=== PATIENT | male | born 1960 | race Two or more races ===

== ENCOUNTER 2019-02-13 03:00 | Emergency (ER) | payer BC ==
--- NOTE | 2019-02-13 03:35 | PDOC ---
Attending Attestation - Resident Resident Name: Clayton Damian - ED Attending Attestation I have performed the following: I have examined & evaluated the patient, The case was reviewed & discussed with the resident, I agree w/resident's findings & plan - HPI HPI: 02/13/19 03:37 Pt comes with epuigastric pain; he has HTN in the ER. He states that he has a hx of GB stones and that this is the stone pain. No fevers and no chills. - Physicial Exam PE: 02/13/19 03:38 Agree with resident exam 02/13/19 04:32 Normal heart and lungs and flank and kwon[rapubic area. Normal epigastric exam and normal RUQ and LUQ exam. Pt has no rebound and no guarding. Pt afebrile and he has no chest pain. Pt has no SOB. His BP is elevated and he seems slightly anxious. - Medical Decision Making 02/13/19 04:29 Pt has normal labs and feels better with morphine. 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 Ate fatty food yesterday and drank a bit. Never had a hx of pancreatitis. No HTN, DM, High cholesterol. Pt's PMD is Dr. Aldana; he has been to see the general surgeon in the past for his GB, but decided against cholectystectomy, as he felt fine for months on end. 02/13/19 04:34 all labs including UA are normal CXR normal EKG NSR Pt will have a sonogram of his GB in the morning. 02/13/19 04:53 Pt will be signed ot to the AM team All labs are normal and UA normal
[2019-02-13] MEDS ORDERED: morphine CARPU-JECT 2 MG/1 ML DISP.SYRIN IVPUSH ONE (03:37)
[2019-02-13] MEDS ORDERED: MORPHINE SULFATE 2 MG/ML VIAL IVPUSH ONE (03:37)
--- NOTE | 2019-02-13 03:44 | PDOC ---
History of Present Illness - General Chief Complaint: Pain Stated Complaint: UPPER ABDOMINAL PAIN Time Seen by Provider: 02/13/19 03:25 History Source: Patient Exam Limitations: No Limitations - History of Present Illness Initial Comments: 02/13/19 03:44 58 yo male pmh of gall stones presents to the ED for sudden onset RUQ pain. Pt states the pain woke him up at 1 am, located RUQ with radiation to the back, described as sharp. Pt had a large thanksgiving meal around 6 pm last night. States he has been told he needs to have his gall bladder removed electively. Denies F/C/N/V, CP, SOB, changes in bowel or bladder habits. Past History - Past Medical History Allergies/Adverse Reactions: Allergies Allergy/AdvReac Type Severity Reaction Status Date / Time No Known Allergies Allergy Verified 02/13/19 03:38 Home Medications: Ambulatory Orders NK [No Known Home Medication] 02/13/19 - Psycho Social/Smoking Cessation Hx Smoking History: Never smoked Hx Alcohol Use: No Drug/Substance Use Hx: No Review of Systems - Review of Systems Constitutional: No: Chills, Fever Respiratory: No: Shortness of Breath Cardiac (ROS): No: Chest Pain ABD/GI: Yes: Other (RUQ abdominal pain). No: Constipated, Diarrhea, Nausea, Vomiting : No: Burning, Dysuria, Frequency, Flank Pain Musculoskeletal: No: Back Pain Integumentary: No: Change in Color Neurological: No: Headache, Numbness, Paresthesia, Weakness *Physical Exam - Vital Signs Last Vital Signs Temp Pulse Resp BP Pulse Ox 98.3 F 73 18 188/95 H 100 02/13/19 03:15 02/13/19 03:15 02/13/19 03:15 02/13/19 03:15 02/13/19 03:15 - Physical Exam General Appearance: Yes: Nourished, Appropriately Dressed. No: Apparent Distress HEENT: positive: EOMI Neck: positive: Supple. negative: Carotid bruit Respiratory/Chest: positive: Lungs Clear, Normal Breath Sounds. negative: Respiratory Distress, Accessory Muscle Use, Crackles, Rales, Rhonchi, Stridor, Wheezing Cardiovascular: positive: Regular Rhythm, Regular Rate, S1, S2. negative: Edema , JVD, Murmur Vascular Pulses: Dorsalis-Pedis (R): 4+, Doralis-Pedis (L): 4+ Gastrointestinal/Abdominal: positive: Flat, Soft, Tenderness, Other (+ murphys) . negative: Pulsatile Mass, Distended, Guarding, Rebound Musculoskeletal: negative: CVA Tenderness Extremity: positive: Normal Capillary Refill, Normal Inspection, Normal Range of Motion Integumentary: positive: Normal Color, Dry, Warm Neurologic: positive: Fully Oriented, Alert, Normal Mood/Affect ED Treatment Course - LABORATORY CBC & Chemistry Diagram: 02/13/19 03:45 02/13/19 03:45 Medical Decision Making - Medical Decision Making 02/13/19 06:11 58 yo male pmh of gall stones presents to the ED for sudden onset RUQ pain. Pt states the pain woke him up at 1 am, located RUQ with radiation to the back, described as sharp. Pt had a large thanksgiving meal around 6 pm last night. Denies abdominal surgeries. States he has been told he needs to have his gall bladder removed electively. Denies F/C/N/V, CP, SOB, changes in bowel or bladder habits. vitals show elevated BP otherwise WNL, will reassess after pain control DDX INLT: cholecystitis, hepatitis, ulcers, pancreatitis, GERD Labs neg for elevated WBC, lipase, electrolyte ab 2 mg of morphine given, pain controlled well. BP in the 120s systolic formal US to r/o roderick ordered. If inconclusive consider CTAP if pain persists 02/13/19 06:46 S/O to day team for further care Discharge - Discharge Information Problems reviewed: Yes Clinical Impression/Diagnosis: Abdominal pain Condition: Stable - Follow up/Referral Referrals: Blanca Oh MD [Primary Care Provider] - - Patient Discharge Instructions - Post Discharge Activity
[2019-02-13] MEDS ORDERED: MORPHINE SULFATE 2 MG/ML VIAL ONE ×2 (04:01→04:20)
[2019-02-13 04:06] LABS: BASO % 0.7 % (0-2.0); EOS % 2.4 % (0-4.5); HEMATOCRIT 44.6 % (35.4-49); HEMOGLOBIN 15.5 GM/dL (11.7-16.9); LYMPH % 28.3 % (8-40); MCH 31.5 pg (25.7-33.7); MCHC 34.8 g/dl (32.0-35.9); MEAN CELL VOLUME 90.4 fl (80-96); MEAN PLT VOLUME 9.1 fl (7.5-11.1); MONO % 8.1 % (3.8-10.2); NEUT % 60.5 % (42.8-82.8); PLATELET COUNT 272 K/MM3 (134-434); RBC 4.94 M/mm3 (4.00-5.60); RDW 13.9 % (11.9-15.9); WHITE BLOOD COUNT 6.3 K/mm3 (4.0-10.0)
[2019-02-13 04:17] LABS: INR 0.92 (0.83-1.09); PROTHROMBIN TIME (PATIENT) 10.9 SEC (9.7-13.0)
[2019-02-13 04:27] LABS: EPI CELLS 0.1 /HPF (0-5/HPF); HYALINE CASTS 0 /lpf (0-8); PH,URINE 8.5 (5.0-8.0); URINE APPEARANCE TURBID; URINE BACTERIA 1.4 /hpf (NEGATIVE); URINE BILIRUBIN NEGATIVE (NEGATIVE); URINE COLOR YELLOW; URINE GLUCOSE (UA) NEGATIVE (NEGATIVE); URINE KETONE NEGATIVE (NEGATIVE); URINE LEUK ESTERASE NEGATIVE (NEGATIVE); URINE NITRITE NEGATIVE (NEGATIVE); URINE PROTEIN NEGATIVE (NEGATIVE); URINE RBC 13 /hpf (0-4); URINE UROBILINOGEN 0.2 mg/dL (0.2-1.0); URINE WBC 0 /hpf (0-5)
[2019-02-13 04:29] LABS: ALBUMIN 4.5 g/dl (3.4-5.0); BILIRUBIN,TOTAL 1.1 mg/dL (0.2-1); BLOOD UREA NITROGEN 10.9 mg/dL (7-18); CALCIUM 9.1 mg/dL (8.5-10.1); CREATININE 0.9 mg/dL (0.55-1.3); POTASSIUM 3.8 mmol/L (3.5-5.1); TOT PROT 7.2 g/dl (6.4-8.2)
[2019-02-13 04:38] VITALS: BMI 28.8
[2019-02-13] MEDS ORDERED: SODIUM CHLORIDE 1,000 ML IV STA (06:30)
--- NOTE | 2019-02-13 08:13 | PDOC ---
*Physical Exam - Vital Signs Last Vital Signs Temp Pulse Resp BP Pulse Ox 98.3 F 77 18 126/72 99 02/13/19 03:15 02/13/19 05:13 02/13/19 05:13 02/13/19 05:13 02/13/19 05:13 - Physical Exam General Appearance: Yes: Nourished, Appropriately Dressed. No: Apparent Distress HEENT: positive: Normal ENT Inspection, Normal Voice Neck: positive: Supple Respiratory/Chest: positive: Lungs Clear, Normal Breath Sounds Cardiovascular: positive: Regular Rhythm, Regular Rate, S1, S2 Vascular Pulses: Dorsalis-Pedis (R): 2+, Doralis-Pedis (L): 2+ Gastrointestinal/Abdominal: positive: Normal Bowel Sounds, Soft, Other ( Negative reyes sign). negative: Tender, Distended, Guarding, Rebound, Tenderness Rectal Exam: positive: deferred Lymphatic: negative: Adenopathy Musculoskeletal: positive: Normal Inspection. negative: CVA Tenderness Extremity: positive: Normal Capillary Refill, Normal Inspection, Normal Range of Motion Integumentary: positive: Normal Color, Dry, Warm Neurologic: positive: Fully Oriented, Alert, Normal Mood/Affect, Normal Response , Motor Strength 5/5 ED Treatment Course - LABORATORY CBC & Chemistry Diagram: 02/13/19 03:45 02/13/19 03:45 - ADDITIONAL ORDERS Additional order review: Laboratory Results 02/13/19 02/13/19 02/13/19 04:15 03:45 03:45 PT with INR 10.90 INR 0.92 Sodium Potassium Chloride Carbon Dioxide Anion Gap BUN Creatinine Est GFR (CKD-EPI)AfAm Est GFR (CKD-EPI)NonAf Random Glucose Calcium Total Bilirubin AST ALT Alkaline Phosphatase Creatine Kinase Creatine Kinase Index CK-MB (CK-2) Troponin I Total Protein Albumin Lipase 177 Urine Color Yellow Urine Appearance Turbid Urine pH 8.5 H Ur Specific [place] 1.015 Urine Protein Negative Urine Glucose (UA) Negative Urine Ketones Negative Urine Blood Trace Urine Nitrite Negative Urine Bilirubin Negative Urine Urobilinogen 0.2 Ur Leukocyte Esterase Negative Urine WBC (Auto) 0 Urine RBC (Auto) 13 Urine Casts (Auto) 0 U Epithel Cells (Auto) 0.1 Urine Bacteria (Auto) 1.4 02/13/19 02/13/19 03:45 03:45 PT with INR INR Sodium 139 Potassium 3.8 Chloride 105 Carbon Dioxide 29 Anion Gap 5 L BUN 10.9 Creatinine 0.9 Est GFR (CKD-EPI)AfAm 109.50 Est GFR (CKD-EPI)NonAf 94.48 Random Glucose 133 H Calcium 9.1 Total Bilirubin 1.1 H AST 29 ALT 37 Alkaline Phosphatase 74 Creatine Kinase 253 Creatine Kinase Index 0.6 CK-MB (CK-2) 1.6 Troponin I < 0.02 Total Protein 7.2 Albumin 4.5 Lipase Urine Color Urine Appearance Urine pH Ur Specific [place] Urine Protein Urine Glucose (UA) Urine Ketones Urine Blood Urine Nitrite Urine Bilirubin Urine Urobilinogen Ur Leukocyte Esterase Urine WBC (Auto) Urine RBC (Auto) Urine Casts (Auto) U Epithel Cells (Auto) Urine Bacteria (Auto) 02/13/19 03:45 RBC 4.94 MCV 90.4 MCHC 34.8 RDW 13.9 MPV 9.1 Neutrophils % 60.5 Lymphocytes % 28.3 Monocytes % 8.1 Eosinophils % 2.4 Basophils % 0.7 - RADIOLOGY Radiograph Interpretation: RUQ US: HISTORY PROVIDED: Cholecystitis. Real time examination of the abdomen demonstrates the following: The gallbladder is normal in size. It does contain small calculi and biliary sludge within the neck of the gallbladder. There is no evidence of intra or extrahepatic biliary duct dilatation. There is no sonographic evidence of acute cholecystitis, however, if this is clinically suspected, a follow-up HIDA scan may be warranted. The liver is normal in size. It is hyperechoic in texture consistent with diffuse fatty infiltration. No discrete intrahepatic masses are identified. Hepatopedal flow is documented within the main portal vein. The pancreas is not well visualized due to overlying bowel gas. There is no evidence of hydronephrosis or acute abnormalities of the right kidney. There is no evidence of AAA. The IVC is patent. IMPRESSION: Cholelithiasis and diffuse fatty infiltration of the liver. Clinical correlation and follow-up recommended. Please see above discussion. - Medications Given in the ED: ED Medications Discontinued Medications Generic Name Dose Route Start Last Admin Trade Name Freq PRN Reason Stop Dose Admin Sodium Chloride 1,000 mls @ 1,000 mls/hr 02/13/19 06:30 02/13/19 06:47 Normal Saline - IV 02/13/19 07:29 1,000 mls/hr ASDIR STA Administration Morphine Sulfate 2 mg 02/13/19 03:37 02/13/19 04:05 Morphine Injection - IVPUSH 02/13/19 03:38 2 mg ONCE ONE Administration Morphine Sulfate 2 mg 02/13/19 03:37 02/13/19 04:25 Morphine Sulfate IVPUSH 02/13/19 03:38 2 mg ONCE ONE Administration Medical Decision Making - Medical Decision Making Patient signed out to me from night team pending with abdominal pain and pending am Sono - On my assessment patient had no pain in his abdomen with a negative reyes sign. Patient has no pain at the present time. RUQ US: cholelithiasis without cholecystitis Disposition: Home with general surgery FU Discharge - Discharge Information Problems reviewed: Yes Clinical Impression/Diagnosis: Abdominal pain Qualifiers: Abdominal location: right upper quadrant Qualified Code(s): R10.11 - Right upper quadrant pain Cholelithiasis Qualifiers: Cholelithiasis location: gallbladder Cholecystitis presence: without cholecystitis Biliary obstruction: without biliary obstruction Qualified Code(s) : K80.20 - Calculus of gallbladder without cholecystitis without obstruction Condition: Improved Disposition: HOME - Admission No - Follow up/Referral Referrals: Blanca Oh MD [Primary Care Provider] - Bhanu Lucero MD [Staff Physician] - - Patient Discharge Instructions Patient Printed Discharge Instructions: Gallstones (Alternative Therapy), DI for Gallstones Additional Instructions: You came into the ER with RUQ abdominal pain. We did an ultrasound which showed you have stones in your gallbladder but no infection. We are giving you the number of a general surgeon to call and schedule an appointment with. Please call up Dr. Lucero and schedule an appointment in the next 3 to 5 days. Come back to the ER immediately if you experience right upper quadrant pain, get a fever, start vomiting, feel hot, or have any other new or worsening concerns because this might mean that your gallbladder is getting infected. Thank you for coming to the [facility] ER. We hope you feel better soon! Print Language: WELSH - Post Discharge Activity
[2019-02-13 09:05] VITALS: BP 119/77; PULSE 76; TEMP 98
--- NOTE | 2019-02-13 14:12 | EKG ---
Test Reason : Blood Pressure : / mmHG Vent. Rate : 069 BPM Atrial Rate : 069 BPM P-R Int : 148 ms QRS Dur : 092 ms QT Int : 402 ms P-R-T Axes : 056 041 048 degrees QTc Int : 430 ms NORMAL SINUS RHYTHM WITH SINUS ARRHYTHMIA NO PREVIOUS ECGS AVAILABLE Confirmed by TANYA MCKEON MD ([id number]) on 02/13/2019 2:11:55 PM Referred By: Confirmed By:TANYA MCKEON MD
== END 2019-02-13 09:00 | disposition home or self-care (01) ==
LOC: JER 03:00
PROC: 3E033NZ Introduction of Analgesics, Hypnotics, Sedatives into Peripheral Vein, Percutaneous Approach (ICD-10-PCS; principal; 2019-02-13)
PROC: 3E0337Z Introduction of Electrolytic and Water Balance Substance into Peripheral Vein, Percutaneous Approach (ICD-10-PCS; 2019-02-13)
DX: R10.11 Right upper quadrant pain (principal)
CPT/HCPCS: 36415; 71045-TC-FY; 76705-TC; 80053; 81003; 82550; 82553; 83690; 84484; 85025; 85610; 87086; 93005; 93010; 99284-25; J7030

== ENCOUNTER 2019-03-04 10:42 | Day surgery (SDC) | payer BC ==
--- NOTE | 2019-03-02 13:33 | HP ---
DATE OF ADMISSION: 03/04/2019 HISTORY OF PRESENT ILLNESS: This is a 58-year-old gentleman with a 1-year history of having episodes of biliary colic. The most recent attack was in January 2019, at which point he presented to the emergency room at [facility]. He was diagnosed with biliary colic, normal LFTs, and subsequently discharged to home with medical management. He also underwent an ultrasound at that time that demonstrated cholelithiasis without evidence of acute cholecystitis and fatty liver. The patient states usually attacks last less than 6 hours, but that day it actually lasted 6 hours. He has had no nausea, no vomiting, no fevers, chills, or sweats. He denies a change in stool color, urine color. PAST MEDICAL HISTORY: Denies coronary disease, hypertension, diabetes. PAST SURGICAL HISTORY: None. MEDICATION: None. ALLERGIES: None. SOCIAL HISTORY: Patient does not smoke. He does have a drug history. He drinks socially. PHYSICAL EXAMINATION: HEENT: The sclerae are muddled but not icteric. Abdomen: Soft, nontender, nondistended. He has an upper midline diastasis of moderate to large size from xiphoid to umbilicus. The remainder of the abdominal examination is unremarkable. IMPRESSION/PLAN: History of biliary colic, cholelithiasis: This is a 58-year-old gentleman symptomatic from his biliary disease. At this point, given his ultrasound findings and laboratory data, I think it is best to proceed with a laparoscopic cholecystectomy. Indications, alternatives, and complications of the procedure were discussed. Questions answered. Will plan to obtain written consent the day of surgery. Gayathri MCCALL [id number] cc: Dr. Aldana, [address] [place] [address], [address],
[2019-03-03 14:53] VITALS: BMI 28.8
[2019-03-04] MEDS ORDERED: ERTAPENEM SODIUM 1 GM VIAL ONE (11:02)
[2019-03-04] MEDS ORDERED: ROPIVACAINE HCL 0.5% 30ML VIAL ONE (13:17)
[2019-03-04] MEDS ORDERED: MIDAZOLAM HCL 2 MG/2 ML SINGLE DOSE VIAL ONE ×2 (13:20)
[2019-03-04] MEDS ORDERED: PROPOFOL 20 ML ONE ×3 (14:09→17:54)
[2019-03-04] MEDS ORDERED: fentaNYL CITRATE 250 MCG/5 ML VIAL ONE (14:09)
[2019-03-04] MEDS ORDERED: ceFAZolin SODIUM 1 GM VIAL IVPB ONE (14:45)
[2019-03-04] MEDS ORDERED: ONDANSETRON 4 MG/2 ML VIAL IVPUSH PRN (15:58)
[2019-03-04] MEDS ORDERED: ACETAMINOPHEN 325 MG TABLET (FP) PO PRN (15:58)
[2019-03-04] MEDS ORDERED: morphine SULFATE 4 MG/ML VIAL IVPB PRN (15:58)
[2019-03-04] MEDS ORDERED: oxyCODONE HCL 5 MG TABLET PO PRN (15:58)
[2019-03-04] MEDS ORDERED: D5-1/2NS+20 MEQ KCL - 20 MEQ/1,000 ML INFUS.BAG IV SCH (16:00)
[2019-03-04] MEDS ORDERED: ROCURONIUM BROMIDE 50 MG/5 ML SYRINGE ONE ×2 (16:02→16:03)
[2019-03-04] MEDS ORDERED: LACTATED RINGERS SOLUTION 1,000 ML IV SCH (16:45)
--- NOTE | 2019-03-04 17:47 | OP ---
DATE OF OPERATION: 03/04/2019 PREOPERATIVE DIAGNOSIS: Symptomatic cholelithiasis. POSTOPERATIVE DIAGNOSIS: Symptomatic cholelithiasis. PROCEDURE: Laparoscopic cholecystectomy, peritoneal lavage. SURGEON: Bhanu Gonzalez MD LEAD RIDER: Lake Orozco M.D. ANESTHESIOLOGIST: Miguel A Price M.D. ANESTHESIA: General anesthesia. ESTIMATED BLOOD LOSS: Minimal. SPECIMEN: Gallbladder. INDICATION: This is a 58-year-old gentleman with a 1-year history of episodes of biliary colic. His most recent attack was last month, and he wishes now to undergo a cholecystectomy. DESCRIPTION OF PROCEDURE: Patient identified and appropriately positioned on operating room table, placed under general anesthesia, the abdomen prepped and draped in the usual sterile fashion with ChloraPrep. An infraumbilical incision was made deep in the subcutaneous tissue. The fascia was divided sharply. The peritoneum incised under direct vision. A Veress needle followed by a structural needle placed. The remaining 3 ports were placed under direct vision as well. The gallbladder identified in the right upper quadrant. This was reflected over the dome of the liver in the standard fashion. The omentum was plastered to the body of the gallbladder and was with blunt dissection. The gallbladder itself was then subsequently dissected at the level of the neck and infundibulum to identify the cystic duct. The cystic duct circumferentially isolated. It was subsequently clipped, and then divided. Cystic artery identified more medially and posteriorly. It was isolated, clipped, and then divided in similar fashion. The gallbladder itself was removed from the liver bed with electrocautery. Prior to complete removal, liver bed was irrigated. The operative field was examined and noted to be hemostatic. The right upper quadrant irrigated. The java portal developer was retrieved and noted to be clear. The gallbladder itself was removed from the umbilical port site. The umbilical port site had to be widened to facilitate removal of this generous gallbladder. The fascia at the umbilical port site was reapproximated with 0 Vicryl suture. All skin closed with 4-0 subcuticular Biosyn followed by Dermabond. At the conclusion of the case, sponge and needle counts were correct. ATTESTATION: Brief operative note handwritten on the preprinted form. [facility] queried prior to giving narcotics. BHANU GONZALEZ M.D. /[id number] MTDD
[2019-03-04] MEDS ORDERED: hydrALAZINE HCL 20 MG/ML VIAL ONE (18:20)
[2019-03-04] MEDS ORDERED: hydrALAZINE HCL 20 MG/ML VIAL IVPUSH PRN (18:25)
[2019-03-05] MEDS ORDERED: TAMSULOSIN HCL 0.4 MG CAP PO ONE (08:10)
--- NOTE | 2019-03-05 09:04 | PN ---
Progress Note (short form) - Note Progress Note: Anesthesia postop note 58 y/o M s/p GA for laparoscopic cholecystectomy POD#1, vss, aaox3, no complaints. No anesthesia complications.
[2019-03-05] MEDS ORDERED: PANTOPRAZOLE SODIUM 40 MG VIAL IVPUSH SCH (10:00)
[2019-03-05] MEDS ORDERED: ENOXAPARIN NA (PORCINE) 40 MG/0.4 ML DISP.SYRIN SQ SCH (10:00)
[2019-03-05 13:30] VITALS: BP 122/68; PULSE 102; TEMP 98.7
--- NOTE | 2019-03-09 16:10 | PATH ---
Surgical Pathology Report Patient Name: GEOVANNY CARPENTRE [facility]. Rec. #: [id number] /Age/Gender: 1960 (Age: 58) / M Account: [id number] Location: U SURGICAL Taken: 03/04/2019 Received: 03/05/2019 Reported: 03/09/2019 Physicians: Bhanu Lucero Specimen(s) Received GALLBLADDER Clinical History Calculus of gallbladder with acute cholecystitis Final Diagnosis GALLBLADDER, LAPAROSCOPIC CHOLECYSTECTOMY: CHRONIC CHOLECYSTITIS, CHOLESTEROLOSIS AND CHOLELITHIASIS. Electronically Signed Courtney Muller M.D. Gross Description Received in formalin, labeled "gallbladder," is a 0.5 x 2.2 x 1.7 cm. gallbladder with a 0.2 cm. in length portion of cystic duct attached. The outer surface is hernandez-green and varies from smooth to shaggy. The lumen contains green, tenacious bile as well as multiple yellow, bosselated choleliths ranging from 0.1-1.0 cm in greatest dimension. The mucosa is dark green with gold cholesterol stippling. The wall of the gallbladder measures 0.1 cm. in thickness. Percussion Instrument Repairer sections are submitted in one cassette. 03/06/2019 saudi03/06/2019
== END 2019-03-05 14:30 | disposition home or self-care (01) ==
LOC: JASU-SURG 10:42 → J6S 22:25 → JASU-SURG 03-05 14:30
PROVIDERS: ATTEND Surgery
PROC: 0FT44ZZ Resection of Gallbladder, Percutaneous Endoscopic Approach (ICD-10-PCS; principal; 2019-03-04 13:00)
DX: K80.80 Other cholelithiasis without obstruction (principal)
CPT/HCPCS: 88304-TC; 94760

== ENCOUNTER 2023-08-30 05:23 | Emergency (ER) | payer OTHER ==
[2023-08-30 05:33] VITALS: BP 122/70; PULSE 70; RESP 20; TEMP 98.8; BMI 28.1
[2023-08-30 06:02] LABS: BASO % 0.4 % (0-2.0); EOS % 2.9 % (0-4.5); HEMATOCRIT 41.1 % (35.4-49); HEMOGLOBIN 14.1 GM/dL (11.7-16.9); LYMPH % 15.5 % (8-40); MCH 31.2 pg (25.7-33.7); MCHC 34.2 g/dl (32.0-35.9); MEAN CELL VOLUME 91.1 fl (80-96); MEAN PLT VOLUME 8.7 fl (7.5-11.1); MONO % 7.6 % (3.8-10.2); NEUT % 73.6 % (42.8-82.8); PLATELET COUNT 251 10^3/uL (134-434); RBC 4.51 M/mm3 (4.00-5.60); RDW 13.7 % (11.9-15.9); WHITE BLOOD COUNT 7.7 K/mm3 (4.0-10.0)
[2023-08-30] MEDS: SODIUM CHLORIDE 0.9% 1000 ML INFUS.BAG IV ONE (06:03)
[2023-08-30 06:20] LABS: POTASSIUM 4.5 mmol/L (3.5-5.1)
[2023-08-30 06:22] LABS: BLOOD UREA NITROGEN 9.2 mg/dL (7-18); CALCIUM 8.9 mg/dL (8.5-10.1)
[2023-08-30 06:23] LABS: ALBUMIN 4.1 g/dl (3.4-5.0)
[2023-08-30 06:26] LABS: CREATININE 0.9 mg/dL (0.55-1.3)
[2023-08-30 06:27] LABS: BILIRUBIN,TOTAL 1.9 mg/dL (0.2-1); TOT PROT 6.7 g/dl (6.4-8.2)
[2023-08-30] MEDS ORDERED: DIPHTH,PERTUSS(ACELL),TET 0.5 ML DISP.SYRIN IM ONE (07:08)
== END 2023-08-30 08:19 | disposition left against medical advice (07) ==
LOC: JER 05:23
DX: S02.2XXA Fracture of nasal bones, initial encounter for closed fracture (principal); S01.81XA Laceration without foreign body of other part of head, initial encounter; R55 Syncope and collapse; U07.1 COVID-19; W01.198A Fall on same level from slipping, tripping and stumbling with subsequent striking against other object, initial encounter; Y92.002 Bathroom of unspecified non-institutional (private) residence as the place of occurrence of the external cause
CPT/HCPCS: 0241U-QW; 36415; 70450-TC; 70486-TC; 71045-TC-FY; 80053; 83735; 84484; 85025; 86850; 86900; 86901; 93005; 93010; 99285-25

== ENCOUNTER 2023-09-01 22:17 | Emergency (ER) | payer OTHER ==
[2023-09-01 22:25] VITALS: BMI 28.1
[2023-09-01 23:01] VITALS: RESP 18
[2023-09-01] MEDS: SODIUM CHLORIDE 500 ML IV STA (23:05)
[2023-09-01 23:11] LABS: BASO % 0.5 % (0-2.0); EOS % 2.7 % (0-4.5); HEMATOCRIT 43.2 % (35.4-49); LYMPH % 19.8 % (8-40); MCH 31.3 pg (25.7-33.7); MCHC 34.8 g/dl (32.0-35.9); MEAN CELL VOLUME 89.9 fl (80-96); MEAN PLT VOLUME 9.2 fl (7.5-11.1); MONO % 12.4 % (3.8-10.2); NEUT % 64.6 % (42.8-82.8); PLATELET COUNT 296 10^3/uL (134-434); RBC 4.81 M/mm3 (4.00-5.60); WHITE BLOOD COUNT 6.9 K/mm3 (4.0-10.0)
[2023-09-01 23:23] LABS: PROTHROMBIN TIME (PATIENT) 11.5 SEC (9.7-13.0)
[2023-09-01 23:26] LABS: ACTIVATED PTT 30.9 SECONDS (25.2-36.5)
[2023-09-01 23:30] LABS: POTASSIUM 4.5 mmol/L (3.5-5.1)
[2023-09-01 23:32] LABS: ALBUMIN 4.1 g/dl (3.4-5.0); CALCIUM 8.9 mg/dL (8.5-10.1)
[2023-09-01 23:33] LABS: BLOOD UREA NITROGEN 6.4 mg/dL (7-18)
[2023-09-01 23:35] LABS: CREATININE 0.8 mg/dL (0.55-1.3)
[2023-09-01 23:37] LABS: BILIRUBIN,TOTAL 1.2 mg/dL (0.2-1); TOT PROT 7.1 g/dl (6.4-8.2)
[2023-09-02 01:24] VITALS: BP 142/83; PULSE 72; TEMP 98.4
== END 2023-09-02 01:59 | disposition home or self-care (01) ==
LOC: JER 22:17
PROC: 3E0337Z Introduction of Electrolytic and Water Balance Substance into Peripheral Vein, Percutaneous Approach (ICD-10-PCS; principal; 2023-09-01)
DX: R00.2 Palpitations (principal)
CPT/HCPCS: 36415; 71045-TC-FY; 80053; 84484; 85025; 85610; 85730; 93005; 93010; 99285-25